=== PATIENT | female | born 1950 | race Caucasian/White ===

== ENCOUNTER 2019-06-02 10:01 | Day surgery (SDC) | payer MEDICARE ==
[2019-05-31 14:03] LABS: BASOPHILS % (AUTO) 0.6 % (0-1); EOSINOPHILS # (AUTO) 0.1 X10'3 (0-0.9); EOSINOPHILS % (AUTO) 1.5 % (0-6); HEMATOCRIT 39.7 % (35.0-45.0); HEMOGLOBIN 13.5 g/dl (12.0-16.0); LYMPHOCYTES # (AUTO) 2.4 X10'3 (1.1-4.8); LYMPHOCYTES % (AUTO) 30.9 % (21-51); MEAN CORPUSCULAR HEMOGLOBIN 33.2 PG (27.0-31.0); MEAN CORPUSCULAR HGB CONC 33.9 g/dL (33.0-36.5); MEAN CORPUSCULAR VOLUME 97.8 FL (78-98); MEAN PLATELET VOLUME 9.4 FL (7.4-10.4); MONOCYTES # (AUTO) 0.7 X10'3 (0-0.9); MONOCYTES % (AUTO) 8.8 % (2-12); NEUTROPHILS # (AUTO) 4.6 X10'3 (1.8-7.7); NEUTROPHILS % (AUTO) 58.2 % (42-75); PLATELET COUNT 214 X10'3 (140-440); RED BLOOD COUNT 4.06 X10'6 (4.20-5.60); RED CELL DISTRIBUTION WIDTH 13.2 % (11.5-14.5); WHITE BLOOD COUNT 7.8 X10'3 (4.5-11.0)
[2019-05-31 14:16] LABS: ANION GAP 9 (8-16); BLOOD UREA NITROGEN 26 MG/DL (7-18); BUN/CREATININE RATIO 23.9 (6.6-38.0); CHLORIDE 103 MMOL/L (99-107); CREATININE 1.09 MG/DL (0.40-0.90); GLUCOSE 101 MG/DL (70-104); POTASSIUM 4.3 MMOL/L (3.5-5.1); SODIUM 140 MMOL/L (135-145)
[2019-05-31 14:17] LABS: ALANINE AMINOTRANSFERASE 12 U/L (12-78); ALBUMIN 3.7 G/DL (3.4-5.0); ALBUMIN/GLOBULIN RATIO 0.9 (1.1-1.5); ALKALINE PHOSPHATASE 71 IU/L (46-116); ASPARTATE AMINO TRANSFERASE 17 U/L (10-37); BILIRUBIN,TOTAL 0.4 MG/DL (0.1-1.0); CALCIUM 9.9 MG/DL (8.5-10.1); TOTAL PROTEIN 7.9 G/DL (6.4-8.2); eGFR 50 ML/MIN
[2019-05-31 14:25] LABS: PARTIAL THROMBOPLASTIN TIME 27 SECONDS (22-32)
[2019-06-02] VITALS (13 sets, daily range): BP systolic 94–144; BP diastolic 46–63
[~2019-06-02] VITALS: Ht 162.6 cm; Wt 71.1 kg
[2019-06-02] MEDS ORDERED: diphenhydrAMINE 25mg capsule PO PRN (10:30)
[2019-06-02] MEDS ORDERED: normal saline 1,000 ML IV SCH (10:30)
[2019-06-02] MEDS ORDERED: LORazepam 0.5 MG tablet PO PRN (10:30)
[2019-06-02] MEDS ORDERED: nitroGLYCERIN 0.4mg SUBLingual tab SL PRN ×2 (10:30→13:30)
[2019-06-02] MEDS ORDERED: midazolam 2 mg/2 ml injection ONE ×2 (12:11→12:34)
[2019-06-02] MEDS ORDERED: iohexol 350 MG/ML 50ML vial IV ONE (12:11)
[2019-06-02] MEDS ORDERED: iohexol 350 MG/1 ML 200ml bottle ONE (12:11)
[2019-06-02] MEDS ORDERED: fentaNYL/PF 50MCG/1 ML 2ML syringe ONE ×2 (12:11→12:34)
[2019-06-02] MEDS ORDERED: FENO48TA15 PO (12:15)
[2019-06-02] MEDS ORDERED: ATEN-169 PO (12:15)
[2019-06-02] MEDS ORDERED: SYN0.088T PO (12:15)
[2019-06-02] MEDS ORDERED: [UNRECOGNIZED DRUG - OTHER] PO (12:15)
[2019-06-02] MEDS ORDERED: ALPR-624 PO (12:15)
[2019-06-02] MEDS ORDERED: CART1TAB4 PO (12:15)
[2019-06-02] MEDS ORDERED: CYAN-51 PO (12:15)
[2019-06-02] MEDS ORDERED: BENZ-16 PO (12:15)
[2019-06-02] MEDS ORDERED: VITA100C22 PO (12:15)
[2019-06-02] MEDS ORDERED: VITAMIN B PO (12:15)
[2019-06-02] MEDS ORDERED: CHOL100046 PO (12:15)
[2019-06-02] MEDS ORDERED: LOSA25TA96 PO (12:15)
[2019-06-02] MEDS ORDERED: MAGN200T5 PO (12:15)
[2019-06-02] MEDS ORDERED: ESTR1TAB19 PO (12:15)
[2019-06-02] MEDS ORDERED: LIDOcaine 1% (10mg/ml)w/preservative injection 20ml MDV ONE (12:34)
[2019-06-02] MEDS ORDERED: proCHLORperazine 10 MG/2 ml inj ONE (12:42)
[2019-06-02] MEDS ORDERED: proCHLORperazine 10 MG/2 ml inj IV PRN (13:30)
[2019-06-02] MEDS ORDERED: OXAZEpam 15mg capsule PO PRN (13:30)
[2019-06-02] MEDS ORDERED: ondansetron/PF 4mg/2ml inj IV PRN (13:30)
[2019-06-02] MEDS ORDERED: HYDROcodone/acetaminophen 5mg/325mg tablet PO PRN (13:30)
[2019-06-02] MEDS ORDERED: normal saline 1000ml 1,000 ML IV SCH (13:30)
[2019-06-02] MEDS ORDERED: HYDROcodone/acetaminophen 10/325mg tab PO PRN (13:30)
== END 2019-06-02 19:20 | disposition home or self-care (01) ==
LOC: SSTAY O 10:01
PROVIDERS: ATTEND Internal Medicine Cardiovascular Disease
DX: R06.09 Other forms of dyspnea (principal); I25.10 Atherosclerotic heart disease of native coronary artery without angina pectoris; I10 Essential (primary) hypertension; E03.9 Hypothyroidism, unspecified; E78.5 Hyperlipidemia, unspecified; J44.9 Chronic obstructive pulmonary disease, unspecified; Z79.01 Long term (current) use of anticoagulants; Z87.891 Personal history of nicotine dependence; F12.90 Cannabis use, unspecified, uncomplicated
CPT/HCPCS: 36415; 71046; 80053; 85025; 85610; 85730; 93005; 93458; 99152; C1769; J0780; J1644; J2001; J2250; J3010; J7030; Q0163; Q9967; A4620; A6258; C1760